=== PATIENT | male | born 1995 | race Caucasian/White ===

== ENCOUNTER 2017-10-30 15:31 | Emergency (ER) | payer OTHER ==
[~2017-10-30] VITALS: Ht 172.7 cm; Wt 51.8 kg
[2017-10-30 15:33] VITALS: TEMP 36.6; Ht 172.7 cm; Wt 51.8 kg
[2017-10-30 16:21] LABS: BASO % 0.8 %; BASO ABS # 0.03 K/uL (0-0.2); EOS % 2.7 %; HEMATOCRIT 42.7 % (42-52); HEMOGLOBIN 15.4 g/dL (14.0-18.0); IG# 0.01 K/uL (0.00-0.02); LYMPH % 41.1 %; LYMPH ABS # 1.54 K/uL (1.2-3.4); MEAN CELL VOLUME 83.2 fL (80-100); MEAN CORPUSCULAR HGB CONC 36.1 g/dl (32-36); MONO % 8.8 %; MONO ABS # 0.33 K/uL (0.11-0.59); NEUT % 46.3 %; NEUT ABS # 1.74 K/uL (1.4-6.5); PLATELET COUNT 149 K/uL (130-400); RED CELL DISTRIBUTION WIDTH CV 12.7 % (11.5-14.5); RED CELL DISTRIBUTION WIDTH SD 38.4 fL (36.4-46.3); WHITE BLOOD COUNT 3.75 K/uL (4.8-10.8)
[2017-10-30] MEDS ORDERED: LORA-741 PO (16:29)
[2017-10-30] MEDS ORDERED: PRT/20 PO (16:29)
[2017-10-30 16:42] LABS: ALKALINE PHOSPHATASE 62 U/L (45-117); ALT/SGPT 30 U/L (12-78); AST/SGOT 19 U/L (15-37); BLOOD UREA NITROGEN 12 mg/dl (7-18); CARBON DIOXIDE 27 mmol/L (21-32); CREATININE 0.99 mg/dl (0.60-1.40); GLUCOSE 91 mg/dl (70-99); LIPASE 135 U/L (73-393); POTASSIUM 3.7 mmol/L (3.5-5.1); SODIUM 136 mmol/L (136-145)
--- NOTE | 2017-10-30 16:56 | EMERGENCY ROOM VISIT NOTE ---
History First contact with patient: 15:37 Chief Complaint: ABDOMINAL PAIN Stated Complaint: STOMACH AND BACK PAIN, R SIDE PAIN TO SHOULDER History of Present Illness The patient is a 22 year old male who presents to the Emergency Room with complaints of persistent abdominal pain. The patient states that he woke up today with pain in the upper abdomen and right upper abdomen with radiation of a shooting pain to the right shoulder on occasion. He rates the discomfort a 6/ 10. He describes the pain as fluctuating in nature. He also reports that he has had pain in the right mid back for the past 3 days. He is nauseous without vomiting. The patient admits to a long history of similar issues. He states that he has had ongoing gastrointestinal issues for the past 2 years. He reports having frequent episodes of similar, but less severe pain over the past 2 years. He states these episodes are almost daily and typically occur at night after eating. He states that this pain sometimes keeps him up at night. He reports that he has had about a 40 pound weight loss over this period of time. He states that his stools are pale and claylike with yellow mucus. He also reports a feeling of tenesmus. 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 pylori testing. He does state that his first HIDA scan in 2015 showed 70% function of the gallbladder, but when they repeated this in April of this year it showed a 40% function of the gallbladder. He was referred to surgery, but states that they do not feel he needs cholecystectomy at this time. The patient keeps a very bland diet. He states he has tried multiple PPIs and is currently on pantoprazole. He has also tried MiraLAX and Zantac without improvement of his symptoms. Most recently, he has been to a holistic provider who recommended that he start magnesium and pantothenic acid. He denies any previous abdominal surgeries. He has been told he has a hiatal hernia but denies any other diagnoses. He denies blood in the stools, urinary symptoms or fevers. Review of Systems A complete 10 point review of systems was reviewed with the patient with pertinent positives and negatives as per history of present illness. All else were negative. Past Medical/Surgical History Medical Problems: (1) No significant active problems Social History Smoking Status: Never Smoker Alcohol Use: none Housing Status: lives with family Current/Historical Medications Scheduled Pantoprazole (Protonix), 20 MG PO DAILY Scheduled PRN Lorazepam (Ativan), 0.5 MG PO TID PRN for Anxiety/Agitation Physical Exam Vital Signs Date Time Temp Pulse Resp B/P (MAP) Pulse Ox O2 Delivery O2 Flow Rate FiO2 10/30/17 18:34 70 16 122/73 100 Room Air 10/30/17 17:04 73 18 135/78 100 Room Air 10/30/17 15:33 36.6 92 20 137/54 98 Room Air Physical Exam VITALS: Vitals are noted on the nurse's note and reviewed by myself. Vital signs stable. GENERAL: This is a 22-year-old male, in no acute distress, sitting crosslegged in bed, well-developed well-nourished. SKIN: The skin was without rashes. EARS: External auditory canals clear, tympanic membranes pearly elizabeth without erythema or effusion bilaterally. EYES: Pupils equal round and reactive to light and accommodation. MOUTH: Mucous membranes moist. Tonsils are not enlarged. Pharynx without erythema or exudate. HEART: Regular rate and rhythm without murmurs gallops or rubs. LUNGS: Clear to auscultation bilaterally without wheezes, rales or rhonchi. ABDOMEN: Positive bowel sounds x 4. Abdomen is soft, thin and nondistended. There is diffuse mild abdominal tenderness with focal tenderness in the right upper quadrant. No guarding or rebound tenderness. MUSCULOSKELETAL: There is tenderness to the right thoracic paraspinous muscles. NEURO: Patient was alert and oriented to person place and time. Medical Decision & Procedures ER Provider Diagnostic Interpretation: GALLBLADDER-ABD LIMITED CLINICAL HISTORY: RUQ pain, radiation to shoulder pain. Nausea. TECHNIQUE: Ultrasound COMPARISON STUDY: None FINDINGS: Normal gallbladder. Common bile duct 3 mm. Liver is uniform. Pancreas and right kidney are normal. IMPRESSION: Normal study Laboratory Results 10/30/17 16:08 Red Blood Count 5.13, Mean Corpuscular Volume 83.2, Mean Corpuscular Hemoglobin 30.0, Mean Corpuscular Hemoglobin Concent 36.1, Mean Platelet Volume 10.0, Neutrophils (%) (Auto) 46.3, Lymphocytes (%) (Auto) 41.1, Monocytes (%) (Auto) 8.8, Eosinophils (%) (Auto) 2.7, Basophils (%) (Auto) 0.8, Neutrophils # (Auto) 1.74, Lymphocytes # (Auto) 1.54, Monocytes # (Auto) 0.33, Eosinophils # (Auto) 0.10, Basophils # (Auto) 0.03 10/30/17 16:08 Test 10/30/17 16:08 10/30/17 17:00 White Blood Count 3.75 K/uL (4.8-10.8) Red Blood Count 5.13 M/uL (4.7-6.1) Hemoglobin 15.4 g/dL (14.0-18.0) Hematocrit 42.7 % (42-52) Mean Corpuscular Volume 83.2 fL (80-100) Mean Corpuscular Hemoglobin 30.0 pg (25-34) Mean Corpuscular Hemoglobin Concent 36.1 g/dl (32-36) Platelet Count 149 K/uL (130-400) Mean Platelet Volume 10.0 fL (7.4-10.4) Neutrophils (%) (Auto) 46.3 % Lymphocytes (%) (Auto) 41.1 % Monocytes (%) (Auto) 8.8 % Eosinophils (%) (Auto) 2.7 % Basophils (%) (Auto) 0.8 % Neutrophils # (Auto) 1.74 K/uL (1.4-6.5) Lymphocytes # (Auto) 1.54 K/uL (1.2-3.4) Monocytes # (Auto) 0.33 K/uL (0.11-0.59) Eosinophils # (Auto) 0.10 K/uL (0-0.5) Basophils # (Auto) 0.03 K/uL (0-0.2) RDW Standard Deviation 38.4 fL (36.4-46.3) RDW Coefficient of Variation 12.7 % (11.5-14.5) Immature Granulocyte % (Auto) 0.3 % Immature Granulocyte # (Auto) 0.01 K/uL (0.00-0.02) Erythrocyte Sedimentation Rate 7 mm/hr (0-14) Anion Gap 5.0 mmol/L (3-11) Est Creatinine Clear Calc Drug Dose 85.0 ml/min Estimated GFR () 123.9 Estimated GFR (Non- 106.9 BUN/Creatinine Ratio 11.9 (10-20) Calcium Level 9.0 mg/dl (8.5-10.1) Total Bilirubin 1.0 mg/dl (0.2-1) Aspartate Amino Transf (AST/SGOT) 19 U/L (15-37) Alanine Aminotransferase (ALT/SGPT) 30 U/L (12-78) Alkaline Phosphatase 62 U/L (45-117) C-Reactive Protein < 0.29 mg/dl (0-0.29) Total Protein 8.0 gm/dl (6.4-8.2) Albumin 4.0 gm/dl (3.4-5.0) Globulin 4.0 gm/dl (2.5-4.0) Albumin/Globulin Ratio 1.0 (0.9-2) Lipase 135 U/L (73-393) Urine Color YELLOW Urine Appearance CLEAR (CLEAR) Urine pH 8.5 (4.5-7.5) Urine Specific [place] 1.013 (1.000-1.030) Urine Protein NEG (NEG) Urine Glucose (UA) NEG (NEG) Urine Ketones NEG (NEG) Urine Occult Blood NEG (NEG) Urine Nitrite NEG (NEG) Urine Bilirubin NEG (NEG) Urine Urobilinogen NEG (NEG) Urine Leukocyte Esterase NEG (NEG) Medical Decision Differential diagnosis includes cholecystitis, pancreatitis, gastritis, gastritis, peptic ulcer disease, musculoskeletal pain, among others. The patient is a 22-year-old male who presents today complaining of persistent abdominal pain. Patient has had persistent pain for the past 2 years and has had extensive workup in the past. Labs revealed no leukocytosis, anemia or concerning electrolyte abnormalities. Urinalysis was not suggestive of infection. LFTs within normal limits. Lipase was not elevated. ESR and CRP were not elevated. Right upper quadrant ultrasound was performed and read by radiology with no acute findings. I had a lengthy discussion with the patient and his mother regarding need for continued follow-up with GI. I also recommended discussing possible referral to pain management with the patient's PCP. They were happy with this plan of care. Patient declined any analgesics while in the emergency department. Based on the patient's presentation and work up, I feel the patient is stable for outpatient treatment. The patient was educated to return to the emergency department for any worsening of their current condition or new/concerning symptoms. He will follow up with his kennel supervisor and PCP. Medication Reconcilliation Current Medication List: was personally reviewed by me Blood Pressure Screening Patient's blood pressure: Normal blood pressure Impression Primary Impression: Chronic abdominal pain Departure Information Dispostion Home / Self-Care Condition GOOD Referrals Saira Luther M.D. (PCP) Patient Instructions My [facility] Additional Instructions You have been treated in the Emergency Department for your Abdominal Pain. Laboratory results and imaging studies have ruled out any emergent causes for your abdominal pain which would warrant admission or surgery. For pain control, you can use the following [id number] medicines (if >12 yo): - Regular strength (325mg/tab) Tylenol (acetaminophen) 2 tabs every 4-6 hours as needed. Do not exceed 12 tablets in a 24 hour period. Avoid taking more than 4 grams (4000 mg) of Tylenol per day. This includes any other sources of acetaminophen you may take on a regular basis. Drink plenty of water and stay well hydrated. As with any trip to the Emergency Department, you should follow-up with your Primary Care Provider from today's visit. As discussed, you may want to follow-up with pain management regarding her ongoing abdominal pain. You should also contact your kennel supervisor to schedule follow-up. Return to the emergency department if your symptoms persist despite treatment plan outlined above or if the following symptoms occur: Worsening pain, fevers, persistent vomiting or other new/concerning symptoms.
--- NOTE | 2017-10-30 17:01 | DIAGNOSTIC IMAGING REPORT ---
GALLBLADDER-ABD LIMITED CLINICAL HISTORY: RUQ pain, radiation to shoulder pain. Nausea. TECHNIQUE: Ultrasound COMPARISON STUDY: None FINDINGS: Normal gallbladder. Common bile duct 3 mm. Liver is uniform. Pancreas and right kidney are normal. IMPRESSION: Normal study The above report was generated using voice recognition software. It may contain grammatical, syntax or spelling errors. Electronically signed by: Micheal Verde M.D. 10/30/2017 5:00 PM Dictated Date/Time: 10/30/2017 5:00 PM
[2017-10-30 18:34] VITALS: BP 122/73; PULSE 70; O2SAT 100
== END 2017-10-30 18:43 | disposition home or self-care (01) ==
LOC: C.EDB 15:33 → C.EDA 18:43
DX: R10.84 Generalized abdominal pain (principal); G89.29 Other chronic pain